=== PATIENT | female | born 1985 | race African-American/Black ===

== ENCOUNTER 2016-11-11 15:09 | Emergency (ER) | payer BC ==
[~2016-11-11] VITALS: Ht 162.6 cm; Wt 79.4 kg
[2016-11-11] MEDS ORDERED: IPRATRPIUM/ALBUTEROL 0.5/2.5MG 3 ML NEBU. NEB ONE (15:30)
[2016-11-11] MEDS ORDERED: DEXAMETHASONE SOD PHOS 20 MG/5 ML VIAL. IM ONE (15:30)
--- NOTE | 2016-11-11 15:34 | PHYS DOC ---
Past Medical History Past Medical History: No Pertinent History Past Surgical History: Cholecystectomy Alcohol Use: None Drug Use: None Adult General Chief Complaint Chief Complaint: SHORTNESS OF BREATH [facility] HPI Patient is a 31 year old female who presents with shortness of breath that began a week ago. Patient states she was seen at urgent care 1 week ago and was diagnosed with clinical pneumonia, she states she was put on doxycycline and prednisone. Patient states she feels her symptoms are worsening. She is also complaining of generalized body aches. She also states she feels her ankles are swollen. Patient denies any fever. Denies any significant previous medical history. She states she lives in a house with her who smokes. Review of Systems Review of Systems Constitutional: body aches Eyes: Denies change in visual acuity, redness, or eye pain [] HENT: Denies nasal congestion or sore throat [] Respiratory: cough and shortness of breath [] Cardiovascular: No additional information not addressed in HPI [] GI: Denies abdominal pain, nausea, vomiting, bloody stools or diarrhea [] : Denies dysuria or hematuria [] Musculoskeletal: ankle swelling Integument: Denies rash or skin lesions [] Neurologic: Denies headache, focal weakness or sensory changes [] Endocrine: Denies polyuria or polydipsia [] Current Medications Current Medications Current Medications Medications (Trade) Dose Ordered Sig/Renetta Start Time Stop Time Status Last Admin Dose Admin Albuterol/ Ipratropium (Duoneb) 3 ml 1X ONCE 11/11/16 15:30 11/11/16 15:32 DC 11/11/16 15:30 3 ML Dexamethasone Sodium Phosphate (Decadron) 10 mg 1X ONCE 11/11/16 15:30 11/11/16 15:32 DC 11/11/16 15:56 10 MG Allergies Allergies Allergies Coded Allergies Type Severity Reaction Last Updated Verified No Known Drug Allergies 07/12/14 No Physical Exam Physical Exam Constitutional: Well developed, well nourished, no acute distress, non-toxic appearance. [] HENT: Normocephalic, atraumatic, bilateral external ears normal, oropharynx moist, no oral exudates, nose normal. [] Eyes: PERRLA, EOMI, conjunctiva normal, no discharge. [] Neck: Normal range of motion, no tenderness, supple, no stridor. [] Cardiovascular:Heart rate regular rhythm, no murmur [] Lungs & Thorax: Bilateral breath sounds clear to auscultation [] Abdomen: Bowel sounds normal, soft, no tenderness, no masses, no pulsatile masses. [] Skin: Warm, dry, no erythema, no rash. [] Back: No tenderness, no CVA tenderness. [] Extremities: No tenderness, no cyanosis, no clubbing, ROM intact, no edema. [] Neurologic: Alert and oriented X 3, normal motor function, normal sensory function, no focal deficits noted. [] Psychologic: Affect normal, judgement normal, mood normal. [] Current Patient Data Vital Signs Vital Signs Date Time Temp Pulse Resp B/P Pulse Ox O2 Delivery O2 Flow Rate FiO2 11/11/16 16:50 97 Room Air 11/11/16 15:15 98.4 60 18 121/68 98.4 Lab Values Laboratory Tests Test 11/11/16 15:25 11/11/16 15:55 11/11/16 16:10 Influenza Type A Antigen Negative (NEGATIVE) Influenza Type B Antigen Negative (NEGATIVE) White Blood Count 9.6x10^3/uL (4.0-11.0) Red Blood Count 3.60x10^6/uL (3.50-5.40) Hemoglobin 10.8g/dL (12.0-15.5) L Hematocrit 33.6% (36.0-47.0) L Mean Corpuscular Volume 93fL (79-100) Mean Corpuscular Hemoglobin 30pg (25-35) Mean Corpuscular Hemoglobin Concent 32g/dL (31-37) Red Cell Distribution Width 12.6% (11.5-14.5) Platelet Count 251x10^3/uL (140-400) Neutrophils (%) (Auto) 81% (31-73) H Lymphocytes (%) (Auto) 14% (24-48) L Monocytes (%) (Auto) 5% (0-9) Eosinophils (%) (Auto) 0% (0-3) Basophils (%) (Auto) 0% (0-3) Neutrophils # (Auto) 7.8x10^3uL (1.8-7.7) H Lymphocytes # (Auto) 1.4x10^3/uL (1.0-4.8) Monocytes # (Auto) 0.5x10^3/uL (0.0-1.1) Eosinophils # (Auto) 0.0x10^3/uL (0.0-0.7) Basophils # (Auto) 0.0x10^3/uL (0.0-0.2) Prothrombin Time 13.7SEC (11.7-14.0) Prothrombin Time INR 1.1 (0.8-1.1) PTT 30SEC (24-38) D-Dimer (Margot) 0.27ug/mlFEU (0.00-0.50) Sodium Level 147mmol/L (136-145) H Potassium Level 3.8mmol/L (3.5-5.1) Chloride Level 111mmol/L (98-107) H Carbon Dioxide Level 26mmol/L (21-32) Anion Gap 10 (6-14) Blood Urea Nitrogen 15mg/dL (7-20) Creatinine 0.9mg/dL (0.6-1.0) Estimated GFR (Cockcroft-Gault) 89.6 Glucose Level 101mg/dL (70-99) H Calcium Level 9.1mg/dL (8.5-10.1) Troponin I Quantitative < 0.017ng/mL (0.000-0.055) Ethyl Alcohol Level < 10mg/dL (0-10) Urine Collection Type Unknown Urine Color Yellow Urine Clarity Clear Urine pH 6.0 Urine Specific [place] >=1.030 Urine Protein Negativemg/dL (NEG-TRACE) Urine Glucose (UA) Negativemg/dL (NEG) Urine Ketones (Stick) Negativemg/dL (NEG) Urine Blood Negative (NEG) Urine Nitrite Negative (NEG) Urine Bilirubin Negative (NEG) Urine Urobilinogen Dipstick 0.2mg/dL (0.2 mg/dL) Urine Leukocyte Esterase Negative (NEG) Urine RBC 0/HPF (0-2) Urine WBC Occ/HPF (0-4) Urine Squamous Epithelial Cells Occ/LPF Urine Bacteria 0/HPF (0-FEW) Urine Mucus Mod/LPF Urine Opiates Screen Neg (NEG) Urine Methadone Screen Neg (NEG) Urine Barbiturates Neg (NEG) Urine Phencyclidine Screen Neg (NEG) Urine Amphetamine/Methamphetamine Neg (NEG) Urine Benzodiazepines Screen Neg (NEG) Urine Cocaine Screen Neg (NEG) Urine Cannabinoids Screen Neg (NEG) Urine Ethyl Alcohol Neg (NEG) Laboratory Tests 11/11/16 15:55 Laboratory Tests 11/11/16 15:55 EKG EKG [] Radiology/Procedures Radiology/Procedures [] Course & Med Decision Making Course & Med Decision Making Pertinent Labs and Imaging studies reviewed. (See chart for details) Patient is in the ED with complaints of shortness of breath that began one week ago. She states she was seen at urgent care and was diagnosed with clinical pneumonia and is currently on doxycycline and prednisone. She feels her symptoms are worse. She is also complaining of body aches and swollen ankles. On clinical exam her ankles appears normal. Her lungs are clear to auscultation. She is not short of breath. O2 sats 98% on room air with a heart rate of 73. We did give her a DuoNeb treatment in the ED. 16:02 EKG interpreted by sinus rhythm, HR 57 left mcdonald axis no STEMI CBC no acute findings, CMP with sodium of 147 otherwise no acute findings. Urinalysis negative for infection, specific gravity is slightly high at greater than 1.030. Patient's family members are in the room stating this patient consumes a lot of salted foods. Encouraged patient to cut back on the salt consumption. Encouraged her to push fluids. She is in no distress. She probably has viral bronchitis. I discharged patient with instructions to continue taking the doxycycline as well as prednisone. Gave her prescription for albuterol inhaler. Requested patient asked the to smoke from outside. She was provided return precautions. She was discharged in stable condition. Dragon Disclaimer Dragon Disclaimer This electronic medical record was generated, in whole or in part, using a voice recognition dictation system. Departure Departure Impression: Primary Impression: Secondhand smoke exposure Additional Impression: Acute viral bronchitis Disposition: HOME, SELF-CARE Condition: STABLE Referrals: GABE GORE MD (PCP) Follow-up with your doctor in the next 7 days. Patient Instructions: Acute Bronchitis, [id number] Additional Instructions: You were seen with symptoms consistent with viral bronchitis. Continue taking your antibiotics until they're finished as well as prednisone. Use the breathing treatments as needed. Cut back on salt intake. Increase your water intake to 64 ounces a day. Come back to the emergency room for any concerning symptoms otherwise follow-up with your doctor next week. Scripts Albuterol Sulfate (Proair Respiclick)90 Mcg Aer.pow.ba1 Puff IH PRN Q6HRS PRN SHORTNESS OF BREATH #1 INHALER Prov:SIVA DARNELL APRN 11/11/16 Problem Qualifiers SIVA DARNELL APRN Nov 11, 2016 15:34
[2016-11-11 16:27] LABS: OBC FLU VALID
[2016-11-11 16:29] LABS: BASO % 0 % (0-3); CALCIUM 9.1 mg/dL (8.5-10.1); CREATININE 0.9 mg/dL (0.6-1.0); EOS % 0 % (0-3); GFR 89.6; HEMATOCRIT 33.6 % (36.0-47.0); HEMOGLOBIN 10.8 g/dL (12.0-15.5); LYMPH # 1.4 x10^3/uL (1.0-4.8); LYMPH % 14 % (24-48); MEAN CORPUSCULAR HEMOGLOBIN 30 pg (25-35); MEAN CORPUSCULAR HGB CONC 32 g/dL (31-37); MEAN CORPUSCULAR VOLUME 93 fL (79-100); MONO % 5 % (0-9); NEUT % 81 % (31-73); PLATELET COUNT 251 x10^3/uL (140-400); POTASSIUM 3.8 mmol/L (3.5-5.1); RED CELL DISTRIBUTION WIDTH 12.6 % (11.5-14.5); WHITE BLOOD COUNT 9.6 x10^3/uL (4.0-11.0)
[2016-11-11 16:34] LABS: BILIRUBIN,URINE NEGATIVE (NEG); GLUCOSE,URINE NEGATIVE (NEG); NITRITE,URINE NEGATIVE (NEG); PROTEIN,URINE NEGATIVE (NEG-TRACE); UROBILINOGEN,URINE 0.2 mg/dL (0.2 mg/dL)
[2016-11-11 16:39] LABS: BARBITURATES NEG (NEG); BENZODIAZEPINES NEG (NEG); CANNABINOIDS NEG (NEG); COCAINE NEG (NEG); METHADONE NEG (NEG); OPIATES NEG (NEG); PHENCYCLIDINE NEG (NEG)
[2016-11-11 16:40] LABS: ETHANOL, URINE NEG (NEG)
--- NOTE | 2016-11-11 16:42 | RAD ---
INDICATION: cough COMPARISON: 11/28/2009 FINDINGS: Single view of chest obtained. Hypoexpanded exam without definite focal airspace consolidation. Cardiac silhouette mildly prominent. No grossly displaced acute appearing fracture. IMPRESSION: No definite focal airspace consolidation. Cardiac silhouette is mildly prominent but portion of this could be from portable technique. A formal PA and lateral chest radiograph may be helpful to further evaluate and ensure that this enlargement does not persist to suggest a pathologic cause such as cardiomegaly or pericardial effusion.
[2016-11-11 16:45] LABS: INR 1.1 (0.8-1.1); PROTHROMBIN TIME PATIENT 13.7 SEC (11.7-14.0)
[2016-11-11 17:01] LABS: RBC,URINE 0 /HPF (0-2); WBC,URINE OCC /HPF (0-4)
[2016-11-11 17:02] LABS: BACTERIA,URINE 0 /HPF (0-FEW); SQUAMOUS EPITHELIAL CELL,UR OCC /LPF
--- NOTE | 2016-11-11 17:15 | EKG ---
[facility] [address] [place] [address] Test Date: 2016-11-11 Test Time: 15:49:08 Pat Name: ALEJANDRO CABRAL Department: Room: Gender: F Manager Product Support: : 1985 Requested By: SIVA DARNELL Order Number: [id number] Reading MD: Kumar Freedman Measurements Intervals [place] Rate: 57 P: OK: QRS: 2 QRSD: 72 T: -6 QT: 508 QTc: 498 Interpretive Statements SINUS ARRHYTHMIA NONSPECIFIC ST-T WAVE CHANGES. PROLONGED QT RI6.01 No previous ECG available for comparison Electronically Signed On 11-28-2016 9:41:52 MENTAL HEALTH CASE MANAGER by Kumar Freedman
[2016-11-11] MEDS ORDERED: PROAIR RESPICL90 MCG IH (17:29)
[2016-11-11 17:38] VITALS: BP 119/65
== END 2016-11-11 17:39 | disposition home or self-care (01) ==
LOC: ER 15:09
DX: J20.8 Acute bronchitis due to other specified organisms (principal); M79.89 Other specified soft tissue disorders; Z77.22 Contact with and (suspected) exposure to environmental tobacco smoke (acute) (chronic)
CPT/HCPCS: 36415; 71010; 80048; 81001; 81025; 84484; 85027; 85379; 85610; 85730; 87804; 93005; 94250; 94640; 96372; 99285; G0480; G0481; J1100; J7620

== ENCOUNTER → 2017-12-01 | Outpatient (CLI) | payer BC | END | disposition home or self-care (01) | LOC: KCIC 14:29 | DX: M25.561 Pain in right knee (principal) | CPT/HCPCS: 73564 ==

== ENCOUNTER 2018-06-05 15:31 | Emergency (ER) | payer BC ==
[~2018-06-05] VITALS: Ht 162.6 cm; Wt 79.4 kg
[~2018-06-05 15:31] MED LIST: PROAIR RESPICL90 MCG IH
[2018-06-05 16:07] VITALS: BP 117/64
[2018-06-05] MEDS: ORPHENADRINE CITRATE 60 MG/2 ML VIAL. IM ONE (16:35)
[2018-06-05] MEDS: KETOROLAC 60 MG/2 ML INJ. IM ONE (16:36)
[2018-06-05] MEDS ORDERED: ORPH100T PO (16:58)
[2018-06-05] MEDS ORDERED: NAPR500T8 PO (16:58)
--- NOTE | 2018-06-05 16:58 | PHYS DOC ---
Past Medical History Past Medical History: No Pertinent History Past Surgical History: Cholecystectomy Alcohol Use: None Drug Use: None Adult General Chief Complaint Chief Complaint: LOWER BACK PAIN OR INJURY HPI HPI Patient is a 33 year old female who presents to the ER with complaints of right sided low back pain without injury for the last 5 days. Pt states that the pain began shooting down her right leg today. She describes the pain and sharp and tingling. Currently, she rates her pain as an 8 out of 10 on the pain scale. States she has taken excedrin for the pain with no relief of her symptoms , yesterday the only thing that helped was applying heat to the area. Pt denies any increased urinary frequency, dysuria, hematuria, saddle anesthesia, or loss of bowel or bladder control. She denies any falls or weakness of RLE. Review of Systems Review of Systems Constitutional: Denies fever or chills [] Giabd: Denies saddle anesthesia : Denies loss of bowel or bladder control, increased urinary frequency, dysuria, or hematuria [] Musculoskeletal: Reports Right sided low back pain that shoots to R leg and groin Integument: Denies rash or skin lesions [] Neurologic: Denies headache, focal weakness or sensory changes [] All other systems were reviewed and found to be within normal limits, except as documented in this note. Current Medications Current Medications Current Medications Medications (Trade) Dose Ordered Sig/Renetta Start Time Stop Time Status Last Admin Dose Admin Ketorolac Tromethamine (Toradol Im) 30 mg 1X ONCE 06/05/18 16:30 06/05/18 16:31 DC 06/05/18 16:36 30 MG Orphenadrine Citrate (Norflex) 60 mg 1X ONCE 06/05/18 16:30 06/05/18 16:31 DC 06/05/18 16:35 60 MG Allergies Allergies Allergies Coded Allergies Type Severity Reaction Last Updated Verified No Known Drug Allergies 07/12/14 No Physical Exam Physical Exam Constitutional: Well developed, well nourished, no acute distress, non-toxic appearance. [] HENT: Normocephalic, atraumatic, bilateral external ears normal, nose normal. [] Eyes: PERRLA, conjunctiva normal, no discharge. [] Neck: Normal range of motion, no tenderness, supple, no stridor. [] Lungs & Thorax: Respirations even and unlabored Skin: Warm, dry, no erythema, no rash. [] Back: No tenderness, straight leg lift negative Extremities: No tenderness, no cyanosis, no clubbing, ROM intact, no edema. [] Neurologic: Alert and oriented X 3, normal motor function, normal sensory function, no focal deficits noted. [] Psychologic: Affect normal, judgement normal, mood normal. [] Current Patient Data Vital Signs Vital Signs Date Time Temp Pulse Resp B/P (MAP) Pulse Ox O2 Delivery O2 Flow Rate FiO2 06/05/18 16:07 98.2 64 16 117/64 (81) 100 Room Air 98.2 Lab Values Laboratory Tests Test 06/05/18 16:28 POC Urine HCG, Qualitative Hcg negative (Negative) EKG EKG [] Radiology/Procedures Radiology/Procedures [] Course & Med Decision Making Course & Med Decision Making Pertinent Labs and Imaging studies reviewed. (See chart for details) DX R low back pain with sciatica. Pt was given 60 mg of norflex, and 30 of toradol IM in the department. Prescriptions for norflex and naproxen written. Patient verbalized an understanding of home care, medications, follow-up, and return to ED instructions and was in agreement with the plan of care. [] Dragon Disclaimer Dragon Disclaimer This electronic medical record was generated, in whole or in part, using a voice recognition dictation system. Departure Departure Impression: Primary Impression: Right-sided low back pain with sciatica Referrals: GABE GORE MD (PCP) Patient Instructions: Sciatica with [facility] Additional Instructions: Fill prescriptions and use as directed. Do the exercises provided. Follow up with your primary care doctor in 2-3 days. Return to the ER if symptoms worsen. Scripts Orphenadrine Citrate (ORPHENADRINE CITRATE) 100 Mg Tablet.er 1 TAB PO BID for 10 Days, #20 TAB 0 Refills Prov: SCOTT JC SENIOR DATABASE ADMINISTRATOR 06/05/18 Naproxen (NAPROXEN) 500 Mg Tablet.dr 1 TAB PO BID for 10 Days, #20 TAB 0 Refills Prov: SCOTT JC SENIOR DATABASE ADMINISTRATOR 06/05/18 Problem Qualifiers Primary Impression: Right-sided low back pain with sciatica Chronicity: acute Sciatica laterality: sciatica of right side Qualified Codes: M54.41 - Lumbago with sciatica, right side SCOTT JC APRN Jun 05, 2018 16:58
== END 2018-06-05 17:10 | disposition home or self-care (01) ==
LOC: ER 15:31
DX: M54.41 Lumbago with sciatica, right side (principal); Z90.49 Acquired absence of other specified parts of digestive tract
CPT/HCPCS: 81025; 96372; 99284; J1885; J2360; 99283

== ENCOUNTER → 2019-08-28 | Outpatient (CLI) | payer BC ==
[~2019-08-28] MED LIST changes: +NAPR500T8 PO; +ORPH100T PO
--- NOTE | 2019-08-28 16:47 | KCIC ---
MRI right knee without contrast dated 08/28/2019. No comparison available. CLINICAL INDICATION: Right knee pain. TECHNIQUE: Routine multiplanar multisequence MR imaging of right knee performed. No contrast administered. FINDINGS: Bone marrow signal is homogeneous. No marrow edema. No significant hypertrophic changes. There is minimal thinning of the articular cartilage throughout. No full-thickness osteochondral defect. Tiny suprapatellar joint effusion. Trace amount of fluid at the semimembranosus-medial head gastrocnemius bursa. No intra-articular loose body. Anterior cruciate and posterior cruciate ligaments intact. Medial and lateral collateral complexes intact. Iliotibial band, popliteus tendon and pes anserine complex within normal limits. Quadriceps and patellar tendon are intact. No abnormality of the medial or lateral retinaculum. Both menisci are normal in morphology and signal. No articular surface tear or perimeniscal cyst. IMPRESSION: 1. No evidence of internal derangement. 2. Small joint effusion. Electronically signed by: Woo Small MD (08/28/2019 4:44 PM) [id number]
== END | disposition home or self-care (01) ==
LOC: KCIC MRI 14:54
PROVIDERS: ATTEND Family Medicine
DX: M25.461 Effusion, right knee (principal); Z90.49 Acquired absence of other specified parts of digestive tract
CPT/HCPCS: 73721

== ENCOUNTER 2019-12-02 08:07 | Emergency (ER) | payer BC ==
[~2019-12-02] VITALS: Ht 162.6 cm; Wt 84.0 kg
[2019-12-02 08:14] VITALS: BP 116/77
[2019-12-02] MEDS ORDERED: DEXAMETHASONE 4 MG TABLET PO ONE (09:00)
--- NOTE | 2019-12-02 09:22 | RAD ---
CHEST PA LATERAL History: Cough. Comparison: 11/11/2016. FINDINGS: The cardiomediastinal silhouette is stable and not enlarged. No evidence of pneumothorax. No evidence of pleural effusion. Bones appear intact. IMPRESSION: No evidence of consolidating infiltrate. Electronically signed by: Woo Hester MD (12/02/2019 9:19 AM) [id number]
[2019-12-02] MEDS ORDERED: BENZ100C PO (09:29)
[2019-12-02] MEDS ORDERED: PRED20TA PO (09:29)
[2019-12-02] MEDS ORDERED: GUAI120L35 PO (09:29)
--- NOTE | 2019-12-02 09:30 | PHYS DOC ---
Past Medical History Past Medical History: No Pertinent History Past Surgical History: Cholecystectomy Additional Past Surgical Histo: rotator cuff, bicep Smoking Status: Never Smoker Alcohol Use: Occasionally Drug Use: None Adult General Chief Complaint Chief Complaint: COUGH HPI HPI 34-year-old female presents with report of nasal congestion and nonproductive cough that has been ongoing for the past week. Patient reports she has been taking [id number] treatments without any improvement. Denies any fever. Denies sore throat. Denies known sick contacts. Patient concerned that her cough is not getting better. Denies . Review of Systems Review of Systems Constitutional: Denies fever or chills Eyes: Denies redness or eye pain HENT: Reports nasal congestion; denies sore throat Respiratory: Reports cough; denies shortness of breath Cardiovascular: Denies chest pain or palpitations GI: Denies abdominal pain, nausea, or vomiting : Denies dysuria or hematuria Musculoskeletal: Denies back pain or joint pain Integument: Denies rash or skin lesions Neurologic: Denies headache, focal weakness or sensory changes Complete systems were reviewed and found to be within normal limits, except as documented in this note. Current Medications Current Medications Current Medications Medications (Trade) Dose Ordered Sig/Renetta Start Time Stop Time Status Last Admin Dose Admin Dexamethasone (Decadron) 10 mg 1X ONCE 12/02/19 09:00 12/02/19 09:04 DC 12/02/19 09:15 10 MG Allergies Allergies Allergies Coded Allergies Type Severity Reaction Last Updated Verified No Known Drug Allergies 07/12/14 No Physical Exam Physical Exam Constitutional: Well developed, well nourished, no acute distress, non-toxic appearance HENT: Normocephalic, atraumatic, oropharynx moist, nasal congestion noted Eyes: Conjunctiva normal, no discharge Neck: Normal range of motion, no tenderness, supple Cardiovascular: Heart rate normal, regular rhythm Lungs & Thorax: Bilateral breath sounds clear to auscultation, no wheezing/rhonchi/rales Abdomen: Soft, no tenderness Skin: Warm, dry, no erythema, no rash Extremities: No tenderness, ROM intact, no edema Neurologic: Alert and oriented X 3, normal motor function, normal sensory function, no focal deficits noted Psychologic: Affect normal, judgment normal Current Patient Data Vital Signs Vital Signs Date Time Temp Pulse Resp B/P (MAP) Pulse Ox O2 Delivery O2 Flow Rate FiO2 12/02/19 08:14 98.7 69 18 116/77 (90) 98 Room Air 98.7 Lab Values Laboratory Tests Test 12/02/19 08:36 POC Urine HCG, Qualitative Hcg negative (Negative) EKG EKG [] Radiology/Procedures Radiology/Procedures PROCEDURE: CHEST PA & LATERAL CHEST PA LATERAL History: Cough. Comparison: 11/11/2016. FINDINGS: The cardiomediastinal silhouette is stable and not enlarged. No evidence of pneumothorax. No evidence of pleural effusion. Bones appear intact. IMPRESSION: No evidence of consolidating infiltrate. Electronically signed by: Woo Hester MD (12/02/2019 9:19 AM) [id number] Course & Med Decision Making Course & Med Decision Making Pertinent Imaging studies reviewed. (See chart for details) Patient presents with history of present illness and physical exam concerning for bronchitis. Chest x-ray confirmed no infiltrates. Symptomatic treatment pr ovided with oral steroid. Patient stable for discharge with outpatient follow-up with PCP. Discussed findings and plan with patient, who acknowledges understanding and agreement. Dragon Disclaimer Dragon Disclaimer This electronic medical record was generated, in whole or in part, using a voice recognition dictation system. Departure Departure Impression: Primary Impression: Bronchitis, acute Disposition: 01 HOME, SELF-CARE Condition: STABLE Referrals: DAXA SIMMONS MD (PCP) Patient Instructions: Acute Bronchitis, [id number] Scripts Benzonatate (TESSALON PERLE) 100 Mg Capsule 1 CAP PO TID PRN for COUGH, #21 CAP Prov: WOO SANTIAGO DO 12/02/19 Guaifenesin/Codeine Phosphate (Codeine-Guaifen 10-100 mg/5 ml) 120 Ml Liquid 10 ML PO Q8HRS PRN for COUGH, #200 LIQUID Prov: WOO SANTIAGO DO 12/02/19 Prednisone (PREDNISONE) 20 Mg Tablet 2 TAB PO DAILY, #8 TAB Start this prescription tomorrow, Monday12/03/2019 Prov: WOO SANTIAGO DO 12/02/19 Problem Qualifiers Primary Impression: Bronchitis, acute Bronchitis organism: unspecified organism Qualified Codes: J20.9 - Acute bronchitis, unspecified WOO SANTIAGO DO Dec 02, 2019 09:30
== END 2019-12-02 09:43 | disposition home or self-care (01) ==
LOC: ER 08:07
DX: J20.9 Acute bronchitis, unspecified (principal); R05 Cough; R09.81 Nasal congestion; Z90.49 Acquired absence of other specified parts of digestive tract; Z98.890 Other specified postprocedural states
CPT/HCPCS: 71046; 81025; 99283; J8540

== ENCOUNTER 2020-05-06 18:17 | Emergency (ER) | payer BC ==
[~2020-05-06] VITALS: Ht 162.6 cm; Wt 86.3 kg
[~2020-05-06 18:17] MED LIST changes: +BENZ100C PO; +GUAI120L35 PO; +PRED20TA PO
--- NOTE | 2020-05-06 19:15 | PHYS DOC ---
Past Medical History Past Medical History: No Pertinent History (SCOTT JC APRN) Past Surgical History: Cholecystectomy Additional Past Surgical Histo: rotator cuff, bicep (SCOTT JC APRN) Smoking Status: Never Smoker Alcohol Use: Occasionally Drug Use: None (SCOTT JC APRN) General Adult EDM: Chief Complaint: NAUSEA/VOMITING/DIARRHA HPI: HPI: Patient is a 35 year old female who presents to the emergency department with complaints of fever, chills, body aches, diarrhea, and a headache that began at 1500 tonight. Patient states that she works at [employer] and 1 of her coworkers tested positive for chlamydia last week. She states she woke up this morning feeling fatigued but went to work and felt fine until she was headed home when her symptoms started. She denies any chest pain, shortness of breath, wheezing, cough, nasal congestion, ear pain, sore throat, or rash. She denies any abdominal pain. Patient reports that she has had 3 episodes of diarrhea but denies any blood in her stool today. She currently rates her body aches and 9 out of 10 on the pain scale, she denies taking any medications prior to arrival for relief of her body aches. She denies any radiation of the pain or any alleviating factors. (SCOTT JC APRN) Review of Systems: Review of Systems: Constitutional: See HPI Eyes: Denies change in visual acuity. [] HENT: Denies nasal congestion or sore throat. [] Respiratory: Denies cough or shortness of breath. [] Cardiovascular: Denies chest pain or edema. [] GI: See HPI : Denies dysuria. [] Musculoskeletal: See HPI Integument: Denies rash. [] Neurologic: Denies headache, focal weakness or sensory changes. [] Psychiatric: Denies depression or anxiety. [] (SCOTT JC APRN) Heart Score: Risk Factors: Risk Factors: DM, Current or recent (<one month) smoker, HTN, HLP, family history of CAD, obesity. Risk Scores: Score 0 - 3: 2.5% MACE over next 6 weeks - Discharge Home Score 4 - 6: 20.3% MACE over next 6 weeks - Admit for Clinical Observation Score 7 - 10: 72.7% MACE over next 6 weeks - Early Invasive Strategies (SCOTT JC APRN) Allergies: Allergies: Allergies Coded Allergies Type Severity Reaction Last Updated Verified No Known Drug Allergies 07/12/14 No (SCOTT JC APRN) Physical Exam: PE: Constitutional: Well developed, well nourished, no acute distress, ill appearance, obese HENT: Normocephalic, atraumatic, bilateral external ears normal, oropharynx moist, no oral exudates, nose normal. [] Eyes: PERRLA, EOMI, conjunctiva normal, no discharge. [] Neck: Normal range of motion, no tenderness, supple, no stridor. [] Cardiovascular:Heart rate regular rhythm, no murmur [] Lungs & Thorax: Respirations even and unlabored, no retractions, no respiratory distress, regular rate, speaking full sentences Abdomen: soft, no tenderness Skin: Warm, dry, no erythema, no rash. [] Back: No tenderness Extremities: No cyanosis, ROM intact, no edema. [] Neurologic: Alert and oriented X 3, no focal deficits noted. [] Psychologic: Affect normal, judgement normal, mood normal. [] (SCOTT JC APRN) EKG: EKG: [] (SCOTT JC APRN) Radiology/Procedures: Radiology/Procedures: [] (SCOTT JC APRN) Course & Med Decision Making: Course & Med Decision Making Pertinent Labs and Imaging studies reviewed. (See chart for details) 35-year-old female presents to the emergency department with complaints of body aches, fever, chills, and diarrhea that began today, patient reported recent exposure to coworker with COVID-19 Work-up included labs, IV fluids, and Tylenol CBC is unremarkable; CMP glucose of 104, calcium of 8, magnesium of 1.6 otherwise unremarkable; patient's liver enzymes were not elevated, lipase is within normal limits; UA revealed moderate bacteria with many squames likely contaminated, and urine hCG is negative. The patient was tachycardic on arrival after her IV fluids and 1 g of Tylenol heart rate normalized. The patient was feeling better. Patient was instructed that she is under investigation for COVID-19 she was given COVID-19 instructions and advised to go home and quarantine until she knows the results of her tests.. Prescription was written for Zofran to take as needed for nausea. Encourage clear fluids. Return to the emergency department if symptoms worsen or she develops shortness of breath or difficulty breathing. Patient verbalized an understanding of home care, medications, follow-up, and return to ED instructions and was in agreement with the plan of care. COVID-19 CRITERIA: The patient was evaluated during the global COVID-19 pandemic, and that diagnosis was suspected/considered upon their initial presentation. Their evaluation, treatment and testing was consistent with current guidelines for patients who present with complaints or symptoms that may be related to COVID-19. [] (SCOTT JC APRN) Dragon Disclaimer: Dragon Disclaimer: This electronic medical record was generated, in whole or in part, using a voice recognition dictation system. (SCOTT JC APRN) Departure Departure Impression: Primary Impression: Person under investigation for COVID-19 Additional Impression: Nausea, vomiting, and diarrhea Disposition: 01 HOME, SELF-CARE Condition: STABLE Referrals: DAXA SIMMONS MD (PCP) Patient Instructions: Diet for Diarrhea, Adult, Nausea and Vomiting, [id number] Additional Instructions: Fill prescription and use them as directed. Recommend clear fluids for the next 24 hours. Then you may advance to bland foods such as bananas, rice, applesauce, and dry toast. You have been tested for or diagnosed with COVID-19. It is an infection caused by a new type of coronavirus. COVID-19 will cause cold-like or mild flu symptoms in most. It can cause more severe symptoms like problems breathing in some. There is no treatment for COVID-19. The body will clear the infection over time. Self-care will help to ease discomfort. Steps to Take: Self-Care Rest as needed. Healthy habits may help you feel better. Steps include: Choose healthy foods including fruits and vegetables. Drink water throughout the day. Get plenty of sleep each night. If you smoke, try to quit. It may ease breathing. Avoid alcohol. Keep Others Healthy The virus can spread to others. Droplets are released every time you sneeze or cough. The droplets can get into the mouth, nose, or eyes of people near you and lead to infection. To lower the chances of spreading COVID-19 to others: Stay at home until your doctor has said it is safe to leave. If you tested positive this will mean staying isolated until both of the following are true: At least 7 days have passed since the start of illness. You are free of fever for at least 72 hours without the use of medicine. During this time: - Avoid public areas, events, or transportation. Do not return to work or school until your doctor has said it is safe to do so. - Call ahead if you need to go to a medical center. Let them know you may have COVID-19. It will help them guide you where to go. They may also ask you to wear a facemask when you come to the office. - If you call for emergency medical services, let them know you may have COVID- 19. While at home: - Try to avoid close contact with others. Stay about 6 feet away. - If possible, spend most of your time in a separate room from others. - Use a face mask if you will be in close contact with others such as sharing a room or vehicle. - Have someone wipe down common surfaces in the home. Use household sorter laundry articles every day on areas like doorknobs, counters, or sinks. - Cough or sneeze into a tissue. Throw the tissue away right after use. If a tissue is not available, cough or sneeze into your elbow. - Wash your hands often. Wash them after sneezing or coughing. Use soap and water and wash for at least 20 seconds. Alcohol based hand spice cleaner can be used if soap and water is not available. - Do not prepare food for others. Avoid sharing personal items like forks, spoons, or toothbrushes. - Avoid close contact with pets while you are sick. There is no evidence of the virus passing to pets. This is a safety step until more is known about this virus. Isolation can be frustrating. Social interaction can help. Keep in touch with friends and family through phone and tech options. You can still interact with others in your home, just keep a safe distance of about 6 feet. Follow-up: Your doctors office will check in with you to see if there are any changes in your health. You may be asked to keep track of symptoms to share with them. They will also let you know when you are clear to be in public again. Problems to Look Out For: Contact your doctor if your recovery is not going as you expect. Get emergency care if you have problems such as: - Trouble breathing - Nonstop chest pain or pressure - Changes in awareness, confusion, or problems waking - Lips or face have bluish color - Worsening of symptoms If you think you have an emergency, call for emergency medical services right away. As taken from [facility] Ondansetron Hcl (ONDANSETRON HCL) 4 Mg Tablet 1 TAB PO PRN Q6HRS PRN for NAUSEA/VOMITING for 3 Days, #12 TAB 0 Refills Prov: SCOTT JC APRN 05/06/20 Justicifation of Admission Dx: Justifications for Admission: Justification of Admission Dx: N/A (SCOTT JC APRN) COVID-19 Assessment: COVID-19 Patient Risks: Age 65 or older: No Sign of co-morbidity: No Exp to person + for COVID: Yes Exp to PUI: No Travel from affected area: No Lower respiratory symptoms: No Fever: No Other: No (SCOTT JC APRN) PPE Use: Full PPE with N95 mask or PAPR: Yes (SCOTT JC APRN) Attending Signature Attending Signature I have reviewed the PA/VETERINARY ANATOMIST's note and plan of care. I was available for consultation as needed during the patient's visit in the emergency department. I agree with the clinical impression, plan, and disposition. (JOSE MANUEL SANTIAGO DO) SCOTT JC APRN May 06, 2020 19:15 JOSE MANUEL SANTIAGO DO May 07, 2020 01:50
[2020-05-06 19:27] LABS: BASO % 0 % (0-3); EOS % 1 % (0-3); HEMATOCRIT 36.4 % (36.0-47.0); LYMPH # 0.3 x10^3/uL (1.0-4.8); LYMPH % 5 % (24-48); MEAN CORPUSCULAR HEMOGLOBIN 30 pg (25-35); MEAN CORPUSCULAR HGB CONC 33 g/dL (31-37); MEAN CORPUSCULAR VOLUME 90 fL (79-100); MONO # 0.4 x10^3/uL (0.0-1.1); MONO % 7 % (0-9); NEUT # 4.6 x10^3/uL (1.8-7.7); NEUT % 87 % (31-73); PLATELET COUNT 205 x10^3/uL (140-400); RED BLOOD COUNT 4.04 x10^6/uL (3.50-5.40); RED CELL DISTRIBUTION WIDTH 12.3 % (11.5-14.5); WHITE BLOOD COUNT 5.3 x10^3/uL (4.0-11.0)
[2020-05-06 19:34] LABS: CREATININE 0.7 mg/dL (0.6-1.0); GFR 116.6; POTASSIUM 3.7 mmol/L (3.5-5.1)
[2020-05-06 19:40] LABS: ALBUMIN 3.9 g/dL (3.4-5.0); ALBUMIN/GLOBULIN RATIO 1.2 (1.0-1.7); MAGNESIUM 1.6 mg/dL (1.8-2.4); TOTAL BILIRUBIN 0.3 mg/dL (0.2-1.0); TOTAL PROTEIN 7.2 g/dL (6.4-8.2)
[2020-05-06 19:43] LABS: % BANDS 2 % (0-9); % LYMPHS 4 % (24-48); % MONOS 5 % (0-10); % SEGS 89 % (35-66); PLT ESTIMATE ADEQUATE (ADEQUATE)
[2020-05-06] MEDS ORDERED: IV NORMAL SALINE 1000ML BAG 1,000 ML IV ONE (20:15)
[2020-05-06] MEDS ORDERED: ACETAMINOPHEN 500 MG TABLET PO ONE (20:15)
[2020-05-06 20:26] LABS: BILIRUBIN,URINE NEGATIVE (NEG); CLARITY,URINE CLEAR; COLOR,URINE YELLOW; NITRITE,URINE NEGATIVE (NEG); PH,URINE 5.5 (<5.0-8.0); PROTEIN,URINE NEGATIVE (NEG-TRACE); UROBILINOGEN,URINE 0.2 mg/dL (0.2 mg/dL)
[2020-05-06 20:31] LABS: SQUAMOUS EPITHELIAL CELL,UR MANY /LPF
[2020-05-06 20:34] LABS: BACTERIA,URINE MODERATE /HPF (0-FEW)
[2020-05-06 20:36] LABS: RBC,URINE 0 /HPF (0-2); WBC,URINE OCC /HPF (0-4)
[2020-05-06] MEDS ORDERED: ONDA-84 PO (21:09)
[2020-05-06 21:19] VITALS: BP 112/63
== END 2020-05-06 21:26 | disposition home or self-care (01) ==
LOC: ER 18:17
DX: Z20.828 Contact with and (suspected) exposure to other viral communicable diseases (principal); R11.2 Nausea with vomiting, unspecified; R19.7 Diarrhea, unspecified; Z90.49 Acquired absence of other specified parts of digestive tract
CPT/HCPCS: 36415; 80053; 81001; 81025; 83690; 83735; 85007; 85025; 87086; 99283; J7030; U0003

== ENCOUNTER → 2021-04-20 | Outpatient (CLI) | payer BC ==
[~2021-04-20] MED LIST changes: +GADOTERATE 5 MMOL/10ML VIAL. IVP ONE; +ONDA-84 PO
--- NOTE | 2021-04-20 15:55 | RAD ---
EXAMINATION: Magnetic resonance imaging (MRI) of the brain and orbits without and with contrast 2020 2:14 PM HISTORY: Optic neuritis. Headaches TECHNIQUE: Multiplanar multi-weighted MRI of the brain and orbits was performed without and with intr avenous contrast using the orbits and brain protocol. Contrast information: 18 mL Gadolinium based contrast COMPARISON: None available. FINDINGS: Globes are spherical and contour. There is no lens dislocation. Optic nerves and optic nerve sheaths are intact. Optic chiasm is normal in appearance. No suspicious intraconal or extraconal mass is iden tified. Extraocular muscles are symmetric and normal in appearance. No suspicious enhancement is iden tified. The scalp and calvarium are normal. The superior sagittal sinus demonstrates normal venous flow. The corpus callosum is normal in shape and signal intensity. The posterior fossa is unremarkable. The p ituitary and sella are normal. The brainstem and craniocervical junction are unremarkable. Diffusion weighted images reveal no hyperintensities to suggest acute cerebral infarction. The suscep tibility weighted sequences reveal no evidence of acute or chronic hemorrhage. The ventricles are nor mal in size and position without evidence of hydrocephalus. There are no areas of abnormal contrast enhancement. The paranasal sinuses are normal. The visualized portions of the mastoids are unremarkable. Normal flow voids are demonstrated in the carotid arteries and basilar artery. IMPRESSION: 1. No evidence for acute or subacute ischemia. No suspicious intracranial abnormality. 2. Normal appearance of the orbits. No MR findings to suggest optic neuritis. Electronically signed by: Andressa Carty MD (04/20/2021 3:53 PM) [id number]
== END ==
LOC: MRI 13:53
PROVIDERS: ATTEND Student in an Organized Health Care Education/Training Program
DX: H46.9 Unspecified optic neuritis (principal)
CPT/HCPCS: 70543; 70553; A9575